=== PATIENT | male | born 1970 | race Caucasian/White ===

== ENCOUNTER → 2020-04-05 | Outpatient (CLI) | payer BC ==
[2020-04-05 09:53] LABS: Basophils % (A) 1 %; Eosinophils # (A) 0.2 k/uL (0-0.7); Eosinophils % (A) 3 %; HCT 51.3 % (39.0-53.0); HGB 17.3 gm/dL (13.0-17.5); Lymphocytes # (A) 1.5 k/uL (1.0-4.8); Lymphocytes % (A) 32 %; MCH 31.9 pg (25.0-35.0); MCHC 33.8 g/dL (31.0-37.0); MCV 94.5 fL (80.0-100.0); Mean Platelet Volume 7.5; Monocytes # (A) 0.4 k/uL (0-1.0); Monocytes % (A) 8 %; Neutrophils # (A) 2.5 k/uL (1.3-7.7); Neutrophils % (A) 53 %; Platelet Count 241 k/uL (150-450); RBC 5.44 m/uL (4.30-5.90); RDW 12.6 % (11.5-15.5); WBC 4.7 k/uL (3.8-10.6)
== END | disposition home or self-care (01) ==
LOC: LABPAT 09:01
PROVIDERS: ATTEND Orthopaedic Surgery
DX: Z01.818 Encounter for other preprocedural examination (principal); K43.0 Incisional hernia with obstruction, without gangrene
CPT/HCPCS: 85025

== ENCOUNTER 2020-04-11 05:41 | Day surgery (SDC) | payer BC ==
[2020-04-10 11:00] VITALS: BMI 38.5
[~2020-04-11 05:41] MED LIST: HEPARIN SODIUM,PORCINE 5,000 UNIT/ML 1 ML VIAL SQ ONE; ceFAZolin 3 GM in SODIUM CHLORIDE 0.9% 100 ML IVPB ONE
[2020-04-11] MEDS ORDERED: ONDANSETRON 4 MG/2 ML VIAL IVP ONE (05:43)
[2020-04-11] MEDS ORDERED: LACTATED RINGERS 1,000 ML IV SCH (05:43)
[2020-04-11] MEDS ORDERED: DEXAMETHASONE SOD PHOSPHATE 10 MG/ML 1 ML VIAL IV ONE (05:43)
[2020-04-11] MEDS ORDERED: HYDROmorphone 0.5 MG/0.5 ML SYRINGE IVP PRN (05:43)
[2020-04-11] MEDS ORDERED: SCOPOLAMINE 1.5MG/72HR PATCH TRANSDERM ONE (05:43)
[2020-04-11] MEDS ORDERED: MIDAZOLAM 2 MG/2 ML VIAL IV PRN (05:43)
[2020-04-11] MEDS ORDERED: ONDANSETRON 4 MG/2 ML VIAL ONE (06:07)
[2020-04-11] MEDS ORDERED: HEPARIN SODIUM,PORCINE 5,000 UNIT/ML 1 ML VIAL ONE (06:07)
[2020-04-11] MEDS ORDERED: LACTATED RINGERS 1,000 ML IV ONE (06:27)
[2020-04-11] MEDS ORDERED: MIDAZOLAM 2 MG/2 ML VIAL IVP ONE (07:10)
[2020-04-11] MEDS ORDERED: fentaNYL (PF) 50 MCG/ML 2 ML AMP IVP ONE (07:10)
[2020-04-11] MEDS ORDERED: ROPIVACAINE 5 MG/ML 30 ML VIAL ONE (07:38)
[2020-04-11] MEDS ORDERED: SUCCINYLCHOLINE CHLORIDE VIAL 200 MG/10 ML VIAL IV ONE (07:38)
[2020-04-11] MEDS ORDERED: fentaNYL (PF) 50 MCG/ML 2 ML AMP ONE (07:38)
[2020-04-11] MEDS ORDERED: MIDAZOLAM 2 MG/2 ML VIAL ONE (07:38)
[2020-04-11] MEDS ORDERED: LIDOCAINE 1% INJ 10MG/ML (20 ML MDV) ONE (07:38)
[2020-04-11] MEDS ORDERED: ROCURONIUM BROMIDE 10 MG/ML 5 ML VIAL IV ONE (07:38)
[2020-04-11] MEDS ORDERED: PROPOFOL 10 MG/ML 20 ML VIAL IV ONE (07:38)
[2020-04-11] MEDS ORDERED: NEOSTIGMINE 1 MG/ML 10 ML VIAL ONE (07:38)
[2020-04-11] MEDS ORDERED: GLYCOPYRROLATE 0.2 MG/ML 2 ML VIAL ONE (07:38)
[2020-04-11] MEDS ORDERED: KETAMINE 10 MG/ML 20 ML VIAL ONE (07:38)
--- NOTE | 2020-04-11 07:39 | P.GSHP ---
History of Present Illness H&P Date: 04/11/20 Chief Complaint: Incarcerated incisional hernia This a 50-year-old male who presents today for laparoscopic robotic system repair of incarcerated incisional hernia. Patient developed a mass just below his umbilicus. Past Medical History Past Medical History: Hyperlipidemia, Sleep Apnea/CPAP/BIPAP Additional Past Medical History / Comment(s): no current c-pap machine. History of Any Multi-Drug Resistant Organisms: None Reported Past Surgical History: Cholecystectomy Past Anesthesia/Blood Transfusion Reactions: No Reported Reaction Past Psychological History: No Psychological Hx Reported Smoking Status: Former smoker Past Alcohol Use History: Occasional Additional Past Alcohol Use History / Comment(s): quit smoking over 2 weeks ago., smoked little cigars-approx 5/day., smoked off and on since his . Past Drug Use History: None Reported - Past Family History Father Family Medical History: Cancer Additional Family Medical History / Comment(s): mesothelioma Medications and Allergies Home Medications Medication Instructions Recorded Confirmed Type Aspirin [Adult Low Dose Aspirin EC] 81 mg PO DAILY 04/10/20 04/11/20 History Cholesterol Meds-Pt To Bring 1 dose PO WEEKLY 04/10/20 04/11/20 History Ergocalciferol [Vitamin D2] 50,000 unit PO Q7D 04/10/20 04/11/20 History Loratadine [Claritin] 10 mg PO DAILY 04/10/20 04/11/20 History Nicorette Gum 1 piece gum PO DIRECTED 04/10/20 04/11/20 History Allergies Allergy/AdvReac Type Severity Reaction Status Date / Time cat dander Allergy Unknown Nasal Verified 04/10/20 10:53 congestion-stuffy Surgical - Exam Vital Signs Temp Pulse Resp BP Pulse Ox 97.4 F L 78 18 131/78 96 04/11/20 06:19 04/11/20 06:19 04/11/20 06:19 04/11/20 06:19 04/11/20 06:19 - General well developed, well nourished, no distress - Eyes PERRL - ENT normal pinna - Neck no masses - Respiratory normal expansion - Cardiovascular Rhythm: regular - Abdomen 5 cm incarcerated incisional hernia located just below umbilicus Abdomen: soft, non tender Assessment and Plan Assessment: Incarcerated incisional hernia. We'll perform laparoscopic robotic-assisted repair.
[2020-04-11] MEDS ORDERED: BUPIVACAIN-EPI 0.25%-1:200,000 30 ML VIAL SQ ONE (08:07)
--- NOTE | 2020-04-11 08:44 | P.ANPRN ---
Procedure Note - Anesthesia - Nerve Block Performed Bilateral Rectus Abdominis Single Time Out Performed: Yes Date of Procedure: 04/11/20 Procedure Start Time: :10 Procedure Stop Time: :20 Location of Patient: PreOp Indication: Acute Post-Operative Pain, Requested by Surgeon Sedation Type: Sedate with meaningful contact maintained Preparation: Sterile Prep Position: Supine Catheter: None Needle Types: Pajunk Needle Gauge: 21 Ultrasound used to visualize needle placement: Yes Ultrasound used to observe medication spread: Yes Injectate: 0.5% Ropivacaine (see comment for volume) (20cc + decadron- 4mg--- per side) Blood Aspirated: No Pain Paresthesia on Injection Noted: No Resistance on Injection: Normal Image Stored and Saved: Yes Events: Uneventful and Well Tolerated
--- NOTE | 2020-04-11 08:52 | P.OP ---
Date of Procedure: 04/11/20 Preoperative Diagnosis: Incarcerated incisional hernia Postoperative Diagnosis: Incarcerated incisional hernia Procedure(s) Performed: Laparoscopic robotic Incarcerated incisional hernia Partial omentectomy Anesthesia: RUKHSANA Surgeon: Dada Arboleda Estimated Blood Loss (ml): 10 Pathology: other (Omentum, hernia sac) Condition: stable Disposition: PACU Description of Procedure: The patient was placed on the operating table in the supine position. He received general anesthesia. His abdomen was prepped and draped usual fashion. Using a 5 mm optical trocar under direct visualization the peritoneal cavity was entered in the left upper quadrant. The abdomen was then insufflated. The laparoscope was placed back into the perineal cavity. Next a 8 mm robotic trocar was placed in the left lower quadrant and a 12 mm robotic trocar was placed in the left lateral position. The original 5 mm trocar was exchanged for a 8 mm robotic trocar. The patient's placed in the left side up position. And the patient was docked to the robot. The incisional hernia was visualized. Using hook cautery the peritoneum over the incisional hernia was excised. The incarcerated omentum and hernia sac were excised using left cautery and sent to pathology. The fascial opening was repaired using 0V LOC suture. Next a piece of 11 cm round ventral light ST mesh was placed into the. Cavity and secured with 2 OV lock suture. The patient was undocked the robot. The needles were retrieved. The fascia of the 12 mm trocar site was closed with 0 Ethibond suture. Skin was closed interrupted 3-0 Monocryl suture. Dermabond dressings was applied. Patient tolerated procedure well and was sent to recovery room stable condition.
[2020-04-11 08:53] VITALS: TEMP 97.3
[2020-04-11 09:07] VITALS: RESP 16
[2020-04-11 10:46] VITALS: BP 128/90; PULSE 85
== END 2020-04-11 11:09 | disposition home or self-care (01) ==
LOC: OR 05:41
PROVIDERS: ATTEND Surgery
DX: K43.0 Incisional hernia with obstruction, without gangrene (principal); E78.5 Hyperlipidemia, unspecified; E66.01 Morbid (severe) obesity due to excess calories; Z68.38 Body mass index [BMI] 38.0-38.9, adult; G47.33 Obstructive sleep apnea (adult) (pediatric); Z99.89 Dependence on other enabling machines and devices; Z87.891 Personal history of nicotine dependence; Z90.49 Acquired absence of other specified parts of digestive tract; Z79.82 Long term (current) use of aspirin; Z79.899 Other long term (current) drug therapy; Z91.048 Other nonmedicinal substance allergy status
CPT/HCPCS: 49655; S2900; 64486; 64488; 88302

== ENCOUNTER → 2022-08-22 | Outpatient (CLI) | payer BC ==
--- NOTE | 2022-08-22 10:23 | US ---
EXAMINATION TYPE: US prostate transrectal DATE OF EXAM: 08/22/2022 COMPARISON: NONE CLINICAL HISTORY: R97.2 elevated psa. elevated PSA 4.9 This examination was performed using the transrectal probe. EXAM MEASUREMENTS: Gland Size: 7.0 x 4.3 x 7.3 cm Volume: 115 Predicted PSA: 13.8 Actual PSA (if available):4.9 Prostate glandular enlargement. No suspicious lesions noted within the peripheral zone. Seminal vesic les are symmetric. IMPRESSION: Prostatic hypertrophy. No suspicious lesions noted. Predicted PSA = volume x 0.12 ng/ml Calculated Volume = 0.5236 x L x W x H
== END | disposition home or self-care (01) ==
LOC: RADUSWWP 09:17
PROVIDERS: ATTEND Family Medicine
DX: N40.0 Benign prostatic hyperplasia without lower urinary tract symptoms (principal)
CPT/HCPCS: 76872